=== PATIENT | male | born 1975 | race Two or more races ===

== ENCOUNTER 2022-09-14 19:28 | Emergency (ER) | payer OTHER ==
[~2022-09-14] VITALS: Ht 165.1 cm; Wt 94.3 kg
[2022-09-14] MEDS ORDERED: DICLOFENAC SODI75 MG PO (22:06)
== END 2022-09-15 | disposition home or self-care (01) ==
LOC: ER 19:28
DX: R07.89 Other chest pain (principal); M94.0 Chondrocostal junction syndrome [Tietze]